=== PATIENT | female | born 1985 | race Hispanic/Latino ===

== ENCOUNTER 2017-04-05 17:49 | Emergency (ER) | payer MEDICAID ==
[~2017-04-05 17:49] MED LIST: PNV91TAB3 PO
[2017-04-05] MEDS ORDERED: ACETAMINOPHEN 325 MG TAB ONE (19:22)
== END 2017-04-05 19:48 | disposition home or self-care (01) ==
LOC: EDH 17:49
DX: O9A.212 Injury, poisoning and certain other consequences of external causes complicating pregnancy, second trimester (principal); S39.011A Strain of muscle, fascia and tendon of abdomen, initial encounter; Z3A.18 18 weeks gestation of pregnancy; X50.0XXA Overexertion from strenuous movement or load, initial encounter; Y93.89 Activity, other specified; Y92.69 Other specified industrial and construction area as the place of occurrence of the external cause; Y99.8 Other external cause status

== ENCOUNTER 2017-04-27 08:11 | Observation (INO) | payer MEDICAID ==
[2017-04-27 08:57] LABS: APPEARANCE,URINE Clear (CLEAR); BILIRUBIN,URINE Negative (NEGATIVE); COLOR,URINE Yellow (YELLOW); GLUCOSE, URINE (UA) Negative (NEGATIVE); KETONES,URINE Negative (NEGATIVE); LEUKOCYTE ESTERASE ,URINE Negative (NEGATIVE); NITRATE,URINE Negative (NEGATIVE); OCCULT BLOOD,URINE Negative (NEGATIVE); PROTEIN,URINE Negative (NEGATIVE)
== END 2017-04-27 10:39 | disposition home or self-care (01) ==
LOC: EDH 08:11 → LDH 08:26
PROVIDERS: ADMIT Obstetrics & Gynecology; ATTEND Obstetrics & Gynecology
DX: O26.892 Other specified pregnancy related conditions, second trimester (principal); R10.30 Lower abdominal pain, unspecified; M54.9 Dorsalgia, unspecified; Z3A.21 21 weeks gestation of pregnancy
CPT/HCPCS: 76805; 81003; 99285; G0378 ×2

== ENCOUNTER 2017-06-07 22:24 | Observation (INO) | payer MEDICAID ==
[~2017-06-07] VITALS: Ht 154.9 cm; Wt 92.5 kg
[2017-06-07 23:00] LABS: APPEARANCE,URINE Clear (CLEAR); BILIRUBIN,URINE Negative (NEGATIVE); COLOR,URINE Yellow (YELLOW); GLUCOSE, URINE (UA) Negative (NEGATIVE); KETONES,URINE Negative (NEGATIVE); LEUKOCYTE ESTERASE ,URINE Negative (NEGATIVE); NITRATE,URINE Negative (NEGATIVE); OCCULT BLOOD,URINE Negative (NEGATIVE); PH,URINE 6.5 (5.0-8.0); PROTEIN,URINE Negative (NEGATIVE); UROBILINOGEN,URINE 0.2 mg/dL (0.2-1.0)
[2017-06-07] MEDS ORDERED: LACTATED RINGERS 1000ML IV STA (23:04)
[2017-06-07] MEDS ORDERED: LACTATED RINGERS 1000ML 1,000 ML IV ONE (23:07)
[2017-06-07 23:19] LABS: AMPHET/METH SCREEN,URINE NEGATIVE (NEGATIVE); BARBITURATE SCREEN, URINE NEGATIVE (NEGATIVE); BENZODIAZEPINES SCREEN,URINE NEGATIVE (NEGATIVE); CANNABINOID SCREEN,URINE NEGATIVE (NEGATIVE); COCAINE SCREEN,URINE NEGATIVE (NEGATIVE); OPIATE SCREEN,URINE NEGATIVE (NEGATIVE); PHENCYCLIDINE SCREEN,URINE NEGATIVE (NEGATIVE)
[2017-06-08] MEDS ORDERED: TERBUTALINE SULFATE VIAL 1MG/ML SQ SCH ×2
[2017-06-08] MEDS ORDERED: LACTATED RINGERS 1000ML 1,000 ML IV SCH
[2017-06-08] MEDS ORDERED: TERBUTALINE SULFATE VIAL 1MG/ML SQ ONE (00:01)
== END 2017-06-08 01:37 | disposition home or self-care (01) ==
LOC: EDH 22:24 → LDH 22:25
PROVIDERS: ADMIT Obstetrics & Gynecology; ATTEND Obstetrics & Gynecology
DX: O62.9 Abnormality of forces of labor, unspecified (principal); Z3A.27 27 weeks gestation of pregnancy
CPT/HCPCS: 80305; 81003; 96360; 96372; 99285; G0378 ×3; J3105; J7120

== ENCOUNTER 2017-07-09 10:02 | Observation (INO) | payer MEDICAID ==
[2017-07-09 11:11] LABS: APPEARANCE,URINE Cloudy (CLEAR); BILIRUBIN,URINE Negative (NEGATIVE); COLOR,URINE Yellow (YELLOW); GLUCOSE, URINE (UA) TRACE mg/dL (NEGATIVE); KETONES,URINE Negative (NEGATIVE); LEUKOCYTE ESTERASE ,URINE Trace (NEGATIVE); NITRATE,URINE Negative (NEGATIVE); OCCULT BLOOD,URINE Negative (NEGATIVE); PH,URINE 6.5 (5.0-8.0); PROTEIN,URINE Negative (NEGATIVE)
[2017-07-09 11:25] LABS: AMORPHOUS SEDIMENT,UR Few /LPF (None Seen); BACTERIA,URINE Rare /HPF (None Seen); RBC,URINE 0-1 /HPF (0-1); SQUAMOUS EPITHELIAL CELL,UR Rare /HPF (0-2); WBC,URINE 0-1 /HPF (0-1)
[2017-07-09 11:37] LABS: HEMATOCRIT 35.5 % (36-48); MEAN CORPUSCULAR HEMOGLOBIN 29.8 pg (27.0-33.0); MEAN CORPUSCULAR HGB CONC 35.1 g/dL (32.0-36.0); MEAN CORPUSCULAR VOLUME 84.7 fL (79-99); NUCLEATED RED BLOOD CELLS 0.1 % (0.0-0.19); PLATELET COUNT (AUTO) 172 K/uL (130-400); RED BLOOD CELL COUNT(AUTO) 4.19 MIL/uL (4.00-5.50); RED CELL DISTRIBUTION WIDTH 14.2 % (11.0-15.5); WHITE BLOOD COUNT (AUTO) 8.4 K/uL (4.8-10.8)
[2017-07-10 07:32] LABS: HEPATITIS Bs ANTIGEN SCREEN P Negative (Negative)
== END 2017-07-09 14:12 | disposition home or self-care (01) ==
LOC: LDH 10:02
PROVIDERS: ADMIT Obstetrics & Gynecology; ATTEND Obstetrics & Gynecology
DX: O26.893 Other specified pregnancy related conditions, third trimester (principal); O60.03 Preterm labor without delivery, third trimester; R10.9 Unspecified abdominal pain; Z3A.32 32 weeks gestation of pregnancy
CPT/HCPCS: 36415; 76805; 81001; 85027; 86592; 86850; 86900; 86901; 87340; G0378 ×5

== ENCOUNTER 2017-08-04 00:44 | Observation (INO) | payer MEDICAID ==
[~2017-08-04] VITALS: Ht 165.1 cm; Wt 96.2 kg
[2017-08-04] MEDS ORDERED: LACTATED RINGERS 1000ML 1,000 ML IV ONE (01:30)
[2017-08-04] MEDS ORDERED: TERBUTALINE SULFATE VIAL 1MG/ML SQ ONE (02:10)
[2017-08-04] MEDS ORDERED: AMPICILLIN 2GM+NS 100ML 100 ML IV ONE (02:12)
[2017-08-04] MEDS ORDERED: LACTATED RINGERS 1000ML 1,000 ML IV PRN (02:24)
[2017-08-04] MEDS ORDERED: LACTATED RINGERS 1000ML 1,000 ML IV SCH (02:30)
[2017-08-04] MEDS ORDERED: TERBUTALINE SULFATE VIAL 1MG/ML SQ SCH ×2 (02:30)
[2017-08-04 02:38] LABS: MEAN CORPUSCULAR HEMOGLOBIN 29.7 pg (27.0-33.0); MEAN CORPUSCULAR HGB CONC 34.7 g/dL (32.0-36.0); MEAN CORPUSCULAR VOLUME 85.5 fL (79-99); PLATELET COUNT (AUTO) 151 K/uL (130-400); RED BLOOD CELL COUNT(AUTO) 4.09 MIL/uL (4.00-5.50); RED CELL DISTRIBUTION WIDTH 14.1 % (11.0-15.5); WHITE BLOOD COUNT (AUTO) 8.9 K/uL (4.8-10.8)
[2017-08-04 02:44] LABS: APPEARANCE,URINE Clear (CLEAR); BILIRUBIN,URINE Negative (NEGATIVE); COLOR,URINE Yellow (YELLOW); GLUCOSE, URINE (UA) Negative (NEGATIVE); KETONES,URINE Negative (NEGATIVE); LEUKOCYTE ESTERASE ,URINE Trace (NEGATIVE); NITRATE,URINE Negative (NEGATIVE); OCCULT BLOOD,URINE Negative (NEGATIVE); PROTEIN,URINE Negative (NEGATIVE); UROBILINOGEN,URINE 0.2 mg/dL (0.2-1.0)
[2017-08-04 03:11] LABS: BACTERIA,URINE Few /HPF (None Seen); MUCUS,URINE Many LPF (None Seen); RBC,URINE None Seen /HPF (0-1); SQUAMOUS EPITHELIAL CELL,UR Moderate /HPF (0-2); WBC,URINE 0-1 /HPF (0-1)
[2017-08-04] MEDS ORDERED: AMPICILLIN 1GM+NS 50ML 50 ML IV SCH (06:30)
[2017-08-05 11:08] LABS: HEPATITIS Bs ANTIGEN SCREEN P Negative (Negative)
== END 2017-08-04 10:37 | disposition home or self-care (01) ==
LOC: EDH 00:44 → LDH 00:45
PROVIDERS: ADMIT Obstetrics & Gynecology; ATTEND Obstetrics & Gynecology
DX: O60.03 Preterm labor without delivery, third trimester (principal); Z3A.35 35 weeks gestation of pregnancy
CPT/HCPCS: 36415; 81001; 85027; 86592; 86850; 86900; 86901; 87340; 96365; 96372; 99285; G0378 ×10; J0290 ×2; J3105; J7120; 96360; 96361

== ENCOUNTER 2017-08-17 00:11 | Inpatient (IN) | payer MEDICAID ==
[~2017-08-17] VITALS: Ht 162.6 cm; Wt 96.2 kg
[2017-08-17 00:23] VITALS: BP 120/72
[2017-08-17] MEDS ORDERED: PREN1TAB89 PO (00:23)
[2017-08-17 00:39] LABS: APPEARANCE,URINE Clear (CLEAR); BILIRUBIN,URINE Negative (NEGATIVE); COLOR,URINE Yellow (YELLOW); GLUCOSE, URINE (UA) Negative (NEGATIVE); KETONES,URINE Negative (NEGATIVE); LEUKOCYTE ESTERASE ,URINE Moderate (NEGATIVE); NITRATE,URINE Negative (NEGATIVE); OCCULT BLOOD,URINE Negative (NEGATIVE); PROTEIN,URINE Negative (NEGATIVE); UROBILINOGEN,URINE 0.2 mg/dL (0.2-1.0)
[2017-08-17 00:46] LABS: BACTERIA,URINE Rare /HPF (None Seen); RBC,URINE None Seen /HPF (0-1); SQUAMOUS EPITHELIAL CELL,UR Rare /HPF (0-2)
[2017-08-17] MEDS ORDERED: OXYTOCIN-LR 20 UNITS/1000 ML 1,000 ML IV SCH (01:00)
[2017-08-17 01:46] LABS: HEMATOCRIT 38.6 % (36-48); MEAN CORPUSCULAR HEMOGLOBIN 28.8 pg (27.0-33.0); MEAN CORPUSCULAR HGB CONC 33.9 g/dL (32.0-36.0); NUCLEATED RED BLOOD CELLS 0.1 % (0.0-0.19); PLATELET COUNT (AUTO) 168 K/uL (130-400); RED BLOOD CELL COUNT(AUTO) 4.54 MIL/uL (4.00-5.50); RED CELL DISTRIBUTION WIDTH 14.3 % (11.0-15.5)
[2017-08-17] MEDS: LACTATED RINGERS 1000ML 1,000 ML IV PRN ×3 (02:16→07:24)
[2017-08-17] MEDS ORDERED: OXYTOCIN 10 USP UNITS/ML 20 UNIT in LACTATED RINGERS 1000ML 1,000 ML IV SCH (07:00)
[2017-08-17] MEDS ORDERED: LACTATED RINGERS 1000ML 1,000 ML IV ONE ×2 (07:17→11:49)
[2017-08-17] MEDS ORDERED: OXYTOCIN 10 USP UNITS/ML ONE ×2 (07:17→11:50)
[2017-08-17] MEDS ORDERED: EPHEDRINE SULFATE 50 MG/ML AMPULE IVP PRN (08:15)
[2017-08-17] MEDS ORDERED: NALOXONE HCL 0.4 MG/1 ML ML IV PRN (08:15)
[2017-08-17] MEDS ORDERED: LACTATED RINGERS 500 ML 500 ML IV PRN (08:15)
[2017-08-17] MEDS ORDERED: ACETAMINOPHEN 325 MG TAB PO PRN (09:45)
[2017-08-17] MEDS ORDERED: LANOLIN 30GM OINTMENT TP PRN (09:45)
[2017-08-17] MEDS ORDERED: MEASLES/MUMPS/RUBELLA VACCINE, LIVE 0.5 ML/VIAL SQ PRN (09:45)
[2017-08-17] MEDS ORDERED: DIPH,PERTUSS(ACELL),TET VAC/PF 0.5 ML VIAL IM PRN (09:45)
[2017-08-17] MEDS ORDERED: BENZOCAINE/LANOLIN/ALOE VERA 60 ML AEROSOL TP PRN (09:45)
[2017-08-17] MEDS ORDERED: WITCH HAZEL 1 PAD TP PRN (09:45)
[2017-08-17 12:02] VITALS: BP 128/77
[2017-08-17] MEDS: IBUPROFEN 600 MG TABLET PO PRN ×2 (13:45→20:27)
[2017-08-17 15:48] VITALS: BP 124/67
[2017-08-17 19:14] VITALS: BP 131/66
[2017-08-17] MEDS: DOCUSATE SODIUM 100 MG CAP PO SCH (20:27)
[2017-08-17 23:38] VITALS: BP 114/60
[2017-08-18] MEDS: IBUPROFEN 600 MG TABLET PO PRN ×2 (02:47→08:59)
[2017-08-18 03:11] VITALS: BP 118/65
[2017-08-18 05:30] LABS: MEAN CORPUSCULAR HEMOGLOBIN 30.2 pg (27.0-33.0); MEAN CORPUSCULAR HGB CONC 35.4 g/dL (32.0-36.0); MEAN CORPUSCULAR VOLUME 85.4 fL (79-99); PLATELET COUNT (AUTO) 155 K/uL (130-400); RED BLOOD CELL COUNT(AUTO) 3.86 MIL/uL (4.00-5.50); RED CELL DISTRIBUTION WIDTH 14.7 % (11.0-15.5)
[2017-08-18 06:17] LABS: HEPATITIS Bs ANTIGEN SCREEN P Negative (Negative)
[2017-08-18 07:46] VITALS: BP 115/70
[2017-08-18] MEDS: DOCUSATE SODIUM 100 MG CAP PO SCH (08:58)
[2017-08-18 11:31] VITALS: BP 132/84
== END 2017-08-18 12:50 | disposition home or self-care (01) | DRG 560 ==
LOC: EDH 00:11 → LDH 00:12 → OBSVTOIN 00:12 → WSH 12:00
PROVIDERS: ADMIT Obstetrics & Gynecology; ATTEND Obstetrics & Gynecology
PROC: 10E0XZZ Delivery of Products of Conception, External Approach (ICD-10-PCS; principal; 2017-08-17)
PROC: 10907ZC Drainage of Amniotic Fluid, Therapeutic from Products of Conception, Via Natural or Artificial Opening (ICD-10-PCS; 2017-08-17)
PROC: 3E0R3BZ Introduction of Anesthetic Agent into Spinal Canal, Percutaneous Approach (ICD-10-PCS; 2017-08-17)
PROC: 00HU33Z Insertion of Infusion Device into Spinal Canal, Percutaneous Approach (ICD-10-PCS; 2017-08-17)
PROC: 3E0234Z Introduction of Serum, Toxoid and Vaccine into Muscle, Percutaneous Approach (ICD-10-PCS; 2017-08-17)
DX: O80 Encounter for full-term uncomplicated delivery (principal); Z23 Encounter for immunization; Z37.0 Single live birth; Z3A.37 37 weeks gestation of pregnancy
CPT/HCPCS: 36415; 81001; 85027; 86592; 86850; 86900; 86901; 87340; 90715; 96360; 96361; A4314; A4351; J2590; J7120

== ENCOUNTER 2024-06-13 10:38 | Emergency (ER) | payer SELFPAY ==
[~2024-06-13] VITALS: Ht 154.9 cm; Wt 77.1 kg
--- NOTE | 2024-06-13 11:07 | ERN ---
ED Note History of Present Illness Stated Complaint: CHRONIC LOW BACK PAIN Chief Complaint: Back Pain-No Injury Time Seen by MD: 10:40 Dictation: History of present illness: 39-year-old female with no significant past medical history presented to ED with complaints of lower back pain for past 3 weeks. She developed lower back ache without any cause and since yesterday it has been 10/10 more on the left side. No pain radiation or neurological symptoms reported. She denies fever, nausea, vomiting, abdominal pain, trauma to the area. Last menstrual period started 3 days back. Patient is hemodynamically stable. Allergies: Coded Allergies: No Known Drug Allergies (Verified Allergy, Unknown, 02/06/14) Home Meds Active Scripts Orphenadrine Citrate (Norflex) 100 Mg Srtab, 1 TAB PO AM PRN for pain for 5 Days, #5 TAB 0 Refills Prov:RBEECA EARLY MD 06/13/24 Meloxicam (Meloxicam) 15 Mg Tablet, 15 MG PO BID for 5 Days, #10 TAB 0 Refills Prov:REBECA EARLY MD 06/13/24 Past Medical History Past Medical History: No Pertinent History Additional Past Medical Hx: CHRONIC BACK PAIN Surgical History: Cholecystectomy, BTL LMP: Jun 11, 2024 Review of System Dictation REVIEW OF SYSTEMS Positive for lower backache CONSTITUTIONAL: Denies fevers, chills, or night sweats. No unintentional weight loss reported. ENT: No hearing loss, otalgia, otorrhea, rhinitis, rhinorrhea, hoarseness, or sore throat. CARDIOVASCULAR: Denies any exertional angina, dyspnea on exertion, orthopnea, paroxysmal nocturnal dyspnea, palpitations claudication. PULMONARY: Denies any shortness of breath, cough, phlegm / sputum, hemoptysis, pleuritic chest pain. SLEEP: Denies morning headaches, daytime somnolence or napping. Denies difficulty falling asleep, staying asleep, waking from sleep. Denies knowledge of snoring. GASTROINTESTINAL: Denies any type of dysphagia to either liquids or solids. Denies nausea, vomiting, abdominal pain, diarrhea, constipation, blood in stools . NEUROLOGICAL: Denies headache, motor weakness, sensory deficit, vertigo / spinning sensation, gait abnormalities, or tremors. GENITOURINARY: Denies frequency, urgency, nocturia, hematuria or incontinence, low urinary stream, straining to void, urinary intermittency or hesitancy ENDOCRINOLOGY: Denies polyuria, polydipsia, polyphagia or heat / cold intolerance. HEMATOLOGY: Denies thrombophilia / previous clots, or coagulopathy / bleeding disorders. ONCOLOGIC: Denies personal history of malignancy. DERMATOLOGIC: Denies rashes or pruritus. PSYCHIATRIC: Denies any suicidal or homicidal ideation. Denies hallucinations. Initial Vital Sign VS Vital Signs Date Time Temp Pulse Resp B/P (MAP) Pulse Ox O2 Delivery O2 Flow Rate FiO2 06/13/24 10:39 97.9 85 16 131/84 99 Room Air 0 06/13/24 10:51 21 Physical Exam Dictation PHYSICAL EXAM GENERAL APPEARANCE: Well nourished . Awake and alert. Oriented to time, place and person. No acute cardiopulmonary distress. HEENT: Head normocephalic , atraumatic. Sclera anicteric . Pupils are round and reactive. Extraocular movements intact . No conjunctival injection. No nasal congestion. No throat congestion .Oral mucosa moist. NECK: Supple. No JVD. No thyromegaly. No submental, submandibular, pre- /postauricular, occipital or supraclavicular lymphadenopathy. No carotid bruits. CHEST: Normal chest expansion. No Telemetry. LUNGS: Clear to auscultation bilaterally . No rales, rhonchi or any wheezing. Equal tactile fremitus. Resonant to percussion . CARDIOVASCULAR: Regular rate and rhythm. S1 and S2 normal. No rubs, murmurs or gallops. ABDOMEN: Soft, nontender, and nondistended. There is no rebound tenderness, voluntary guarding, or rigidity. No hepatosplenomegaly. Bowel sounds normal in all four quadrants . NEUROLOGICAL: Cranial nerves II-XII grossly intact. Motor is 5/5 in bilateral upper and lower extremities . No sensory deficits. EXTREMITIES: No edema, No cyanosis , No clubbing. Good capillary refill. SKIN: No skin breakdown. No rashes or lesions . PSYCHIATRY: Normal affect .No auditory or visual hallucinations. Normal speech. No dysarthria. BACK: Spinal tenderness elicited in the lumbar and sacral region with paraspinal muscle tightness. Results (Laboratory/Radiology) Laboratory/Radiology Laboratory Tests Test 06/13/24 11:02 06/13/24 11:27 Urine Color LIGHT-YELLOW (YELLOW) Urine Appearance CLEAR (CLEAR) Urine pH 5.5 (5.0-8.0) Urine Specific [place] 1.014 (1.001-1.031) Urine Protein NEGATIVE mg/dL (NEGATIVE) Urine Glucose (UA) NEGATIVE mg/dL (NEGATIVE) Urine Ketones NEGATIVE mg/dL (NEGATIVE) Urine Occult Blood MODERATE (NEGATIVE) H Urine Nitrate NEGATIVE (NEGATIVE) Urine Bilirubin NEGATIVE mg/dL (NEGATIVE) Urine Urobilinogen 0.2 mg/dL (0.2-1.0) Urine Leukocyte Esterase NEGATIVE [place]/uL Urine RBC 6-10 /HPF (0-1) H Urine WBC 0-1 /HPF (0-1) Urine Squamous Epithelial Cells RARE /HPF (0-2) Urine Bacteria None /HPF (None Seen) Urine HCG, Qualitative NEGATIVE (NEGATIVE) White Blood Count 5.0 K/uL (4.8-10.8) Red Blood Count 4.35 MIL/uL (4.00-5.50) Hemoglobin 12.5 g/dL (12.0-16.0) Hematocrit 38.3 % (36-48) Mean Corpuscular Volume 88.0 fL (79-99) Mean Corpuscular Hemoglobin 28.7 pg (27.0-33.0) Mean Corpuscular Hemoglobin Concent 32.6 g/dL (32.0-36.0) Red Cell Distribution Width 12.1 % (11.0-15.5) Platelet Count 215 K/uL (130-400) Mean Platelet Volume 9.7 fL (7.5-10.5) Nucleated Red Blood Cells 0.0 % (0.0-0.19) ED Course ED Course Orders Procedure Category Date Status Time Urinalysis Profile LAB 06/13/24 Complete 10:58 ,Urine Test LAB 06/13/24 Complete 10:58 Cbc Without LAB 06/13/24 Complete Differential 10:58 Lumbar Spine 2-3vws RAD 06/13/24 Resulted 10:58 Ketorolac PHA 06/13/24 Complete Tromethamine 30mg/Ml 11:00 Current Medications Medications (Trade) Dose Ordered Sig/Nicolasa Route PRN Reason Start Time Stop Time Status Last Admin Dose Admin Ketorolac Tromethamine (toRADol) 30 mg ONCE ONCE IM 06/13/24 11:00 06/13/24 11:01 DC 06/13/24 11:08 Vital Signs Date Time Temp Pulse Resp B/P (MAP) Pulse Ox O2 Delivery O2 Flow Rate FiO2 06/13/24 12:16 97.9 70 14 139/87 99 Room Air* 0 21 06/13/24 10:51 97.9 77 16 141/87 99 Room Air* 0 21 06/13/24 10:39 97.9 85 16 131/84 99 Room Air 0 Medical Decision Making MDM Differential diagnosis : Lumbar sprain, UTI Rationale: Tests considered and ordered secondary to shared decision making include: I will re-evaluate the patient after treatment and diagnostic exams have returned to determine whether they require further testing, can be safely discharged home, or need admission for further treatment and evaluation. Given the social determinants of health affecting care, including literacy, access to medical care, prescription drug management, and [id number] drugs, I will ensure that treatment plans are tailored accordingly. There are no social concerns with this patient. Risk of complication and/or morbidity or mortality of patient management: None Need for hospitalization: Patient does not meet criteria for hospitalization. Need for emergency major/minor surgery: No Prescription drug management Prescriptions will include symptomatic care Medications-Per medication reconciliation Previous outside records reviewed: Old ER visits. Patient's prior external medical records from other ER visits were reviewed by me as indicated. Prior testing and results from previous visits were reviewed. Prior tests were taken into account with medical decision making and resource utilization, independent historian/historians were used to obtain complete medical history. I independently interpreted the test that were performed, results were reviewed by me and considered findings on radiology. Medical management and examination interpretation discussions was done by me with other qualified healthcare professionals as indicated for the patient's care. Revaluation: Her CBC and urinalysis is negative for infection. Patient feels better after IM Toradol injection. Disposition : Discharge home DX & DISP Disposition: Discharge Departure Impression: Primary Impression: Sprain lumbar region Additional Impression: Lumbar paraspinal muscle spasm Condition: Stable Scripts Orphenadrine Citrate (Norflex) 100 Mg Srtab 1 TAB PO AM PRN for pain for 5 Days, #5 TAB 0 Refills Prov: REBECA EARLY MD 06/13/24 Meloxicam (Meloxicam) 15 Mg Tablet 15 MG PO BID for 5 Days, #10 TAB 0 Refills Prov: REBECA EARLY MD 06/13/24 Additional Instructions: Follow-up with primary care provider in 1-2 days Take medications as directed here in the emergency room. It is okay to continue home medications unless otherwise discussed during your visit in the emergency room today. Increase oral hydration. Return to your nearest emergency room if symptoms worsen or if there is no improvement. Call 911 if you need immediate assistance. Referrals: SELF,REFERRAL (PCP) ATTESTATION BY PHYSICIAN I have seen and examined the patient. I reviewed the documentation, medical decision making, and treatment plan as noted by the resident provider above. I agree with the findings and plan of care. DO SHARATH Adler ANCHU A MD Jun 13, 2024 11:07 KIRILL MARTINEZ DO Jun 14, 2024 07:18
[2024-06-13] MEDS: ketOROlac 30MG VIAL (30MG/ML) IM ONE (11:08)
[2024-06-13 11:20] LABS: APPEARANCE,URINE CLEAR (CLEAR); BILIRUBIN,URINE NEGATIVE (NEGATIVE); COLOR,URINE LIGHT-YELLOW (YELLOW); GLUCOSE, URINE (UA) NEGATIVE (NEGATIVE); KETONES,URINE NEGATIVE (NEGATIVE); LEUKOCYTE ESTERASE ,URINE NEGATIVE Leu/uL (NEGATIVE); NITRATE,URINE NEGATIVE (NEGATIVE); OCCULT BLOOD,URINE MODERATE (NEGATIVE); PH,URINE 5.5 (5.0-8.0); PROTEIN,URINE NEGATIVE (NEGATIVE); UROBILINOGEN,URINE 0.2 mg/dL (0.2-1.0)
[2024-06-13 11:28] LABS: ADD UA MICROSCOPIC YES
[2024-06-13 11:30] LABS: MUCUS,URINE RARE LPF (None Seen); SQUAMOUS EPITHELIAL CELL,UR RARE /HPF (0-2); WBC,URINE 0-1 /HPF (0-1)
[2024-06-13 11:32] LABS: HCG,QUALITATIVE URINE NEGATIVE (NEGATIVE)
[2024-06-13 11:44] LABS: HEMATOCRIT 38.3 % (36-48); MEAN CORPUSCULAR HEMOGLOBIN 28.7 pg (27.0-33.0); MEAN CORPUSCULAR HGB CONC 32.6 g/dL (32.0-36.0); RED BLOOD CELL COUNT(AUTO) 4.35 MIL/uL (4.00-5.50); RED CELL DISTRIBUTION WIDTH 12.1 % (11.0-15.5)
[2024-06-13] MEDS ORDERED: ORPH100 PO (11:59)
[2024-06-13] MEDS ORDERED: MELO-108 PO (11:59)
[2024-06-13 12:16] VITALS: BP 139/87; PULSE 70; RESP 14; TEMP 97.9; O2SAT 99
--- NOTE | 2024-06-13 12:21 | HMCIMG ---
Exam Type: LUMBAR SPINE 2-3VWS Clinical Information: back pain 3 weeks,, no trauma, para spinal muscle spasm+ Comparison: None Findings: Exam of the lumbosacral spine demonstrates no evidence of fracture, subluxation, or significant degenerative change. The alignment of the spine is normal. The disc spaces are intact. The facet joints are preserved without significant degenerative changes Bone mineralization is normal. Incidentally, there is evidence of left nephrolithiasis. Impression: Normal exam of the lumbosacral spine.
== END 2024-06-13 12:17 | disposition home or self-care (01) ==
LOC: EDH 10:38
DX: S33.5XXA Sprain of ligaments of lumbar spine, initial encounter (principal); M62.830 Muscle spasm of back; Z90.49 Acquired absence of other specified parts of digestive tract; Z98.51 Tubal ligation status; Z79.899 Other long term (current) drug therapy; X58.XXXA Exposure to other specified factors, initial encounter; Y93.89 Activity, other specified; Y92.89 Other specified places as the place of occurrence of the external cause; Y99.8 Other external cause status
CPT/HCPCS: 99284; 85027; 81001; 81025; 36415; 72100; 96372; J1885